=== PATIENT | male | born 1955 | race Caucasian/White ===

== ENCOUNTER → 2020-03-28 12:22 | Outpatient (CLI) | payer OTHER, SELFPAY ==
--- NOTE | 2020-03-28 12:30 | STE_ITS ---
Reason For Study: Aortic Insufficiency Stress Results Protocol: Homero Protocol Maximum Predicted HR: 155 bpm Target HR: 132 bpm % Maximum Predicted HR: 105 % DurationHeart Rate Stage (mm:ss) (bpm) BP Comment Baseline 72 160/96No Chest Pain Homero Protocol Stage I 3:00 120 180/92No Chest Pain Homero Protocol Stage II 3:00 157 194/90No Chest Pain Homero Protocol Stage III 3:00 162 204/94No Chest Pain Homero Protocol Stage IV 3:00 153 210/90No Chest Pain Recovery 95 152/90No Chest Pain Stress Duration: 12:00 mm:ss Maximum Stress HR: 162 bpm METS: 13 Baseline Echocardiogram Findings Stress Echo Wall motion Data Resting WM Intermediate WM Stress WM Interpretation Summary Exercise stress echo. Evaluate aortic insufficiency. Stress protocol: Resting EKG demonstrates normal sinus rhythm with a rate of 73 bpm normal intervals are noted resting blood pressure 160/96 mmHg. The patient exercised according to the regular Homero protocol for a total duration of 12 minutes. The patient completed stage IV of the Homero protocol. The maximum heart rate attained was 166 bpm which was 107% of max impacted heart rate the maximum workload was 13.4 metabolic equivalents. At rest there were no ST or T wave changes noted to suggest ischemia at peak exercise upsloping ST changes were noted with no meet the criteria for ischemia. The resting blood pressure was 160/96 with a peak blood pressure of 210/90 mmHg. No clinical angina was noted occasional premature ventricular complexes were noted the test was terminated due to attainment of target heart rate. Stress echocardiogram. Resting echocardiogram demonstrated estimated ejection fraction of 55% with trivial mitral regurgitation and mild aortic regurgitation. Patient exercised according to the regular Homero protocol and at peak exercise there was thickening of all hopper, contraction of left ventricular size, appropriate thickening of all hopper with no regional wall motion abnormalities noted. The peak ejection fraction was estimated to be 65%. Conclusion: Exercise stress echo with no EKG criteria for ischemia at a high workload. Excellent blood pressure response to exercise. No significant arrhythmias noted. No wall motion abnormalities noted suggestive of ischemia Ordering Physician: Chris Magaña Referring Physician: Nilton Bautista Performed By: Rena Lino, PRADIP, RVT
== END ==
PROVIDERS: PCP Family Medicine; Referring Provider Family Medicine; Visit Provider Family Medicine
DX: I35.1 Nonrheumatic aortic (valve) insufficiency (principal)
CPT/HCPCS: 93017; 93350

== ENCOUNTER → 2021-05-01 | Outpatient (CLI) | payer OTHER, SELFPAY ==
--- NOTE | 2021-05-01 08:00 | PROSBIL_PTH ---
PATIENT: RAÚL DUDLEY LOC: [facility] U#:[id number] AGE/SX: 66/M ROOM: RE05/01/[address]: Dr. Patel Steven MD : 1955 BED: DIS: 05/01/2021 SPEC #: [id number] RECD: 05/01/21 15:41 STATUS: ELDER REPhuong #: [id number] LOUIS: 05/01/21 08:[address]: Patel Steven DEPT: SURGICAL PATHOLOGY RECD BY: Quintin Marin ENTERED: 05/02/21 10:07 SP TYPE: PROST BX MARIBELL DR: Dr. Chris Magaña MD Tissues: A - PROSTATE RIGHT B - PROSTATE RIGHT C - PROSTATE RIGHT D - PROSTATE LEFT E - PROSTATE LEFT F - PROSTATE LEFT Procedures: PROSTATE BX HEADER OPERATION: Prostate biopsy PRE-OP DIAGNOSIS: R97.20 TISSUE SUBMITTED: A - Right apex, B - Right mid, C - Right base, D - Left apex, E - Left mid, F - Left base MICROSCOPIC DIAGNOSIS A. Right prostate, apex, core biopsy: Prostatic tissue, negative for malignancy. B. Right prostate, mid, core biopsy: Prostatic tissue, negative for malignancy. C. Right prostate, base, core biopsy: Prostatic tissue, negative for malignancy. Focal atrophy and mild chronic inflammation. D. Left prostate, apex, core biopsy: Prostatic tissue, negative for malignancy. Focal mild chronic inflammation. E. Left prostate, mid, core biopsy: Prostatic tissue, negative for malignancy. Focal mild chronic inflammation. F. Left prostate, base, core biopsy: Prostatic tissue, negative for malignancy. Focal mild chronic inflammation. SJ:rg 05/03/2021 MICROSCOPIC DESCRIPTION Slides are reviewed. GROSS DESCRIPTION A - Received is one container designated prostate, right apex. The specimen consists of two elongated fragments of light seth-white soft tissue measuring 0.5 and 1.5 cm in length and 0.1 cm in diameter. The specimen is totally submitted in one cassette. B - Received is one container designated prostate, right mid. The specimen consists of two elongated fragments of light seth-white soft tissue each measuring 0.7 cm in length and 0.1 cm in diameter. The specimen is totally submitted in one cassette. C - Received is one container designated prostate, right base. The specimen consists of two elongated fragments of light seth-white soft tissue each measuring 1.2 cm in length and 0.1 cm in diameter. The specimen is totally submitted in one cassette. D - Received is one container designated prostate, left apex. The specimen consists of two elongated fragments of light seth-white soft tissue each measuring 1 cm in length and 0.1 cm in diameter. The specimen is totally submitted in one cassette. E - Received is one container designated prostate, left mid. The specimen consists of two elongated fragments of light seth-white soft tissue measuring 0.5 and 1.2 cm in length and 0.1 cm in diameter. The specimen is totally submitted in one cassette. F - Received is one container designated prostate, left base. The specimen consists of two elongated fragments of light seth-white soft tissue measuring 0.7 and 1.5 cm in length and 0.1 cm in diameter. The specimen is totally submitted in one cassette. / SJ:rg 05/02/21 TC:3 CPT: 48961 x6
== END | disposition home or self-care (01) ==
LOC: LABSPEC 15:49
PROVIDERS: PCP Family Medicine; Referring Provider Urology; Visit Provider Urology
DX: R97.20 Elevated prostate specific antigen [PSA] (principal)
CPT/HCPCS: 88305; G0416

== ENCOUNTER 2022-06-15 16:15 | Outpatient (CLI) | payer OTHER, SELFPAY ==
--- NOTE | 2022-06-15 16:18 | MRI_ITS ---
MR Prostate WO/W Contrast 06/15/2022 4:43 PM COMPARISON: None CLINICAL HISTORY: 67-year-old male with rising PSA level. TECHNIQUE: Standard breast MR protocol was used before and after administration of 14 cc of IV Clariscan. FINDINGS: Prostate volume: 63 cc PSA density: PSA level not provided. Length of membranous urethra: 19 mm Post-biopsy hemorrhage: Yes Multiparametric MR evaluation: Heterogeneous appearance of the central gland is consistent with benign prostatic hyperplasia. Lesion 1: LOCATION - in the right posterior transitional gland at mid gland (image 14, series 8) there is a 1.5 x 1.4 x 1.1 cm ill-defined area of T2 hypointensity. This area is mildly bright on DWI and mildly dark on ADC map. T2 - 3 DWI - 3 DCE - inconclusive. Overall PI-RADS v2 score = 3 Lesion 2: There is diffuse bandlike T2 hypointensity involving the bilateral posterior medial peripheral zone mid gland to base with extension of hypointensity into the bilateral seminal vesicles. This area is mildly bright on DWI and mildly dark on ADC map. Capsular margin and neurovascular bundle: Not involved by lesion 1. Seminal vesicles: Not involved by lesion 1. See lesion 2 findings above. Lymph nodes: No lymphadenopathy in the field of view. Bones: No suspicious lesions in the field of view. MRI/Pelvis W/WO Contrast IMPRESSION: - 1.5 cm PI-RADS 3 lesion in the right posterior TZ at mid gland. - No evidence of macroscopic extracapsular extension. - No lymphadenopathy. - No suspicious bone lesions. Large bandlike T2 hypointense area involving the bilateral posteromedial PZ from mid gland to base with extension into the bilateral seminal vesicles. This could represent malignancy, however, it is more likely that this is prostatitis with seminal vesiculitis. Consider re-checking PSA level after a course of antibiotics. Benign prostatic hyperplasia. There is mild inflammation of a short segment of sigmoid colon concerning for acute sigmoid diverticulitis. Electronically Signed: Ravi Fernández MD at 1:11 EST ,
[2022-06-15 17:00] LABS: CREATININE FINGERSTICK < 0.9 mg/dL (0.70-1.30); EGFR FINGERSTICK > 60.0000 mL/min (>60)
== END 2022-06-15 23:59 | disposition home or self-care (01) ==
PROVIDERS: PCP Family Medicine; Visit Provider Urology
DX: R97.20 Elevated prostate specific antigen [PSA] (principal)
CPT/HCPCS: 72197; A9575

== ENCOUNTER → 2022-07-06 09:24 | Outpatient (REF) | payer SELFPAY | LOC: CVS 09:24 | PROVIDERS: PCP Family Medicine | DX: I10 Essential (primary) hypertension (principal) ==

== ENCOUNTER → 2022-07-06 | Outpatient (CLI) | payer OTHER, SELFPAY ==
--- NOTE | 2022-07-06 09:29 | ECHOD_ITS ---
Reason For Study: HTN Procedure This was a 2D Doppler, Color Flow transthoracic echocardiogram. Exam performed in department. Left Ventricle Normal LV size. Left ventricular systolic function is normal. The estimated ejection fraction is 60 %. No regional wall motion abnormalities noted. Right Ventricle Normal RV size. Normal systolic function. Atria Normal left atrium. Normal right atrium. Mitral Valve Normal mitral valve. Tricuspid Valve Normal tricuspid valve. Mild tricuspid valve insufficiency. Aortic Valve Trisinus/trileaflet aortic valve. Trivial aortic valve insufficiency. Pulmonic Valve Normal pulmonic valve. Great Vessels Normal aortic root. The pulmonary artery is normal size. Normal inferior vena cava. Pericardium/Pleural No pericardial effusion. MMode/2D Measurements & Calculations LVIDd: 4.7 cm IVSd: 1.0 cm Ao root diam: 3.6 cm LVIDs: 3.4 cm LVPWd: 1.1 cm RVDd: 3.5 cm FS: 28.0 % LAV(MOD-bp): 36.5 ml LVAd ap4: 27.8 cm2 SV(MOD-sp4): 51.7 ml LAV(MOD-bp) Indexed: 20.2 ml/m2 LVLd ap4: 7.9 cm LAV(MOD-sp2): 46.1 ml EDV(MOD-sp4): 81.5 ml LAV(MOD-sp4): 24.2 ml EDV(sp4-el): 83.0 ml LVAs ap4: 15.3 cm2 LVLs ap4: 7.0 cm ESV(MOD-sp4): 29.7 ml ESV(sp4-el): 28.2 ml EF(MOD-sp4): 63.5 % EF(sp4-el): 66.0 % SV(sp4-el): 54.7 ml LA A4 area: 11.6 cm2 LA dimension(2D): 2.7 cm RA A4 area: 14.2 cm2 Time Measurements MV dec time: 0.22 sec Doppler Measurements & Calculations MV E max anoop: 89.2 cm/sec Lat Peak E' Anoop: 10.8 cm/sec Med Peak E' Anoop: 7.4 cm/sec MV A max anoop: 87.0 cm/sec E/E' lat: 8.2 E/E' med: 12.0 MV E/A: 1.0 MV V2 max: 85.4 cm/sec Ao V2 max: 143.2 cm/sec MV max P.9 mmHg MV dec slope: 410.6 cm/sec2 Ao max P.2 mmHg MV V2 mean: 50.9 cm/sec Ao V2 mean: 95.5 cm/sec MV mean P.2 mmHg Ao mean P.3 mmHg MV V2 VTI: 25.3 cm Ao V2 VTI: 28.2 cm AV (velocity ratio): 0.90 LV V1 max: 133.2 cm/sec PA V2 max: 85.1 cm/sec LV V1 max P.1 mmHg PA V2 mean: 61.3 cm/sec LV V1 mean P.3 mmHg LV V1 mean: 82.0 cm/sec LV V1 VTI: 25.4 cm ECHO/Echo Complete Interpretation Summary Normal LV size. Left ventricular systolic function is normal. The estimated ejection fraction is 60 %. Mild tricuspid valve insufficiency. Trivial aortic valve insufficiency. Ordering Physician: Niltno Bautista Performed By: Rebecca Stroud RCS
== END | disposition home or self-care (01) ==
LOC: CVS 07-11 09:20
PROVIDERS: PCP Family Medicine; Visit Provider Internal Medicine Cardiovascular Disease
DX: I10 Essential (primary) hypertension (principal); I07.1 Rheumatic tricuspid insufficiency; I35.1 Nonrheumatic aortic (valve) insufficiency
CPT/HCPCS: 93306

== ENCOUNTER → 2022-08-31 | Outpatient (CLI) | payer SELFPAY ==
--- NOTE | 2022-08-31 13:25 | CT_ITS ---
INDICATION: CAD Overread examination. EXAMINATION: CT CHEST WITHOUT CONTRAST - CT Chest W/O Contrast Injection TECHNIQUE: Helically acquired images were obtained of the chest. A radiation dose optimization technique was used for this scan. IV Contrast dosage and agent: None. COMPARISON: None. FINDINGS: LUNGS, PLEURA AND LARGE AIRWAYS: No masses, consolidation, or edema. No pleural effusion or thickening. No pneumothorax. THYROID: No thyroid lesions. HEART AND PERICARDIUM: Heart size is normal. No pericardial effusion. CORONARY ARTERIES: Coronary artery calcification is seen. VESSELS: Thoracic aorta is not dilated. MEDIASTINUM AND ALLISON: Small benign appearing mediastinal lymph nodes. Esophagus is unremarkable. No hiatal hernia. UPPER ABDOMEN: No acute pathology. BONES: No suspicious lytic or blastic abnormality. CT/Limited Chest CT Cardiac Only IMPRESSION: Coronary artery calcification. Electronically Signed: Geoffrey Colon MD at 15:01 EST ,
[2022-08-31 13:26] VITALS: BP 138/84; PULSE 75; RESP 18; TEMP 36.4; O2SAT 98; BMI 22.8
[2022-08-31 13:40] VITALS: BP 129/91; PULSE 72
[2022-08-31] MEDS: Metoprolol Tartrate 5 MG/5 ML Vial IV (13:40)
[2022-08-31] MEDS: 0.9% Saline Lock 10 ML Syringe IV (13:54)
[2022-08-31 14:02] VITALS: BP 139/94; PULSE 63; RESP 18; O2SAT 99
--- NOTE | 2022-08-31 16:33 | CA.SCORE ---
Calcium Scoring Date of Study:: 08/31/22 Coronary Calcium Scoring: High-resolution Computed Tomographic imaging of the chest was performed on [08/31/2022], with particular attention paid to the coronary arteries. Images from the examination were analyzed for the presence and extent of coronary artery calcification , using coronary calcium quantification software. The patient tolerated the procedure well and there were no complications. The results of the coronary calcification analysis are provided below. Findings Coronary Artery Left Main (LM): 0 Left Anterior Descending (LAD): 12 Left Circumflex (LCX): 0 Right Coronary Artery (RCA): 8.45 Total Agatston Score: 20.45 Percentile Ranking: Less than 10% Calcium Scoring Interpretation: Different methods to categorize the overall amount of coronary plaque. Overall amount CAC SIS Visual of coronary plaque P1 Mild -100 <2 1-2 vessels with mild amount of plaque P2 Moderate 101-300 3-4 1-2 vessels with moderate amount, 3 vessels with mild amount of plaque P3 Severe 301-999 5-7 3 vessels with moderate amount, 1 vessel with severe amount of plaque P4 Extensive >1000 >8 2-3 vessels with severe amount of plaque Calcium Score: Mild: 1-2 vessels w/mild amount of plaque Conclusion: Minimal atherosclerotic plaquing only noted.
== END | disposition home or self-care (01) ==
PROVIDERS: PCP Preventive Medicine Occupational Medicine; Referring Provider Internal Medicine Cardiovascular Disease; Visit Provider Internal Medicine Cardiovascular Disease
DX: I10 Essential (primary) hypertension (principal); I25.10 Atherosclerotic heart disease of native coronary artery without angina pectoris
CPT/HCPCS: 75571; 76380; 96374

== ENCOUNTER → 2023-07-04 | Outpatient (CLI) | payer OTHER, SELFPAY ==
--- NOTE | 2023-07-04 11:15 | MRI_ITS ---
EXAMINATION: MR Pelvis Male WO/W Contrast COMPARISON: None CLINICAL HISTORY: 68-year-old man with elevated PSA Most recent PSA = 12 ng/ml TECHNIQUE: Standard prostate MR protocol was used before and after administration of 13 cc of IV Clariscan. FINDINGS: Prostate volume: 85 cc PSA density: 0.14 ng/ml2 Length of membranous urethra: 22 mm Post-biopsy hemorrhage: None Multiparametric MR evaluation: Heterogeneous appearance of the central gland is consistent with benign prostatic hyperplasia. Heterogeneous T2 hypointensity of the peripheral gland as well as the seminal vesicles could represent prostatitis and seminal vesiculitis. Lesion 1: LOCATION - 1.3 x 1.2 x 0.5 cm mildly T2 hypointense ill-defined lesion in the right anterior transitional zone between base and mid gland and demonstrates mild restricted diffusion. T2 - 3 DWI - 3 DCE - inconclusive Overall PI-RADS v2 score = 3 Lesion 2: LOCATION - 1.5 x 1.1 x 1.1 cm moderately T2 hypointense area in the right anterior and posterior transitional zone near base. It is moderately bright on DWI and moderately dark on ADC map. T2 - 4 DWI - 4 DCE - inconclusive Overall PI-RADS v2 score = 4 Capsular margin and neurovascular bundle: Not involved Seminal vesicles: See above. Lymph nodes: No lymphadenopathy in the field of view. Bones: No suspicious lesions in the field of view. MRI/Pelvis W/WO Contrast IMPRESSION: 1.5 cm PI-RADS 4 lesion in the right anterior/posterior TZ near base. - No evidence of macroscopic extracapsular extension. - No evidence of seminal vesicle invasion. - No lymphadenopathy. - No suspicious bone lesions. 1.3 cm PI-RADS 3 lesion in the right anterior TZ between base and mid gland. - No evidence of macroscopic extracapsular extension. - No evidence of seminal vesicle invasion. Benign prostatic hyperplasia. 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 Electronically Signed: Ravi Fernández MD at 18:38 EST ,
[2023-07-04 11:43] LABS: CREATININE FINGERSTICK < 1.0 mg/dL (0.70-1.30); EGFR FINGERSTICK > 60.0000 mL/min (>60)
== END | disposition home or self-care (01) ==
PROVIDERS: Referring Provider Urology; Visit Provider Urology
DX: R97.20 Elevated prostate specific antigen [PSA] (principal); Z80.42 Family history of malignant neoplasm of prostate
CPT/HCPCS: 72197; A9575

== ENCOUNTER → 2023-09-09 | Outpatient (CLI) | payer SELFPAY ==
--- NOTE | 2023-09-09 08:00 | PROSBIL_PTH ---
PATHOLOGY RESULTS PATIENT: RAÚL DUDLEY LOC: [facility] U#:[id number] AGE/SX: 68/M ROOM: RE09/09/[address]: Dr. Patel Steven MD : 1955 BED: DIS: 09/09/2023 SPEC #: [id number] RECD: 09/10/23 08:21 STATUS: ELDER JUICE #: [id number] L[place]IS: 09/09/23 08:[address]: Patel Steven DEPT: SURGICAL PATHOLOGY RECD BY: Liliya Welch ENTERED: 09/10/23 08:22 SP TYPE: PROST BX OTHR DR: No Primary Care Phys Tissues: PROSTATE RIGHT PROSTATE RIGHT PROSTATE RIGHT PROSTATE LEFT PROSTATE LEFT PROSTATE LEFT Procedures: PROSTATE BX HEADER OPERATION: Bilateral prostate biopsy PRE-OP DIAGNOSIS: Elevated prostate specific antigen TISSUE SUBMITTED: A - Right apex, B - Right mid, C - Right base, D - Left apex, E - Left mid, F - Left base MICROSCOPIC DIAGNOSIS A. Right prostate, apex, core biopsy: Prostatic tissue, negative for malignancy. Focal mild chronic inflammation and minimal acute inflammation. B. Right prostate, mid, core biopsy: Prostatic tissue, negative for malignancy. C. Right prostate, base, core biopsy: Prostatic tissue, negative for malignancy. D. Left prostate, apex, core biopsy: Prostatic tissue, negative for malignancy. Focal mild chronic inflammation and minimal acute inflammation. E. Left prostate, mid, core biopsy: Prostatic tissue, negative for malignancy. Focal mild chronic inflammation. F. Left prostate, base, core biopsy: Prostatic tissue, negative for malignancy. Focal mild chronic inflammation. SJ:rozina 09/11/2023 MICROSCOPIC DESCRIPTION Slides are reviewed. GROSS DESCRIPTION A - Received is one container designated prostate, right apex. The specimen consists of three elongated fragments of light seth-white soft tissue measuring 0.5 to 1.5 cm in length and 0.1 cm in diameter. The specimen is totally submitted in one cassette. B - Received is one container designated prostate, right mid. The specimen consists of three elongated fragments of light seth-white soft tissue measuring 1.0 to 1.4 cm in length and 0.1 cm in diameter. The specimen is totally submitted in one cassette. C - Received is one container designated prostate, right base. The specimen consists of two elongated fragments of light seth-white soft tissue each measuring 1.9 cm in length and 0.1 cm in diameter. The specimen is totally submitted in one cassette. D - Received is one container designated prostate, left apex. The specimen consists of two elongated fragments of light seth-white soft tissue each measuring 1.0 cm in length and 0.1 cm in diameter. The specimen is totally submitted in one cassette. E - Received is one container designated prostate, left mid. The specimen consists of two elongated fragments of light seth-white soft tissue measuring 1.8 and 2.1 cm in length and 0.1 cm in diameter. The specimen is totally submitted in one cassette. F - Received is one container designated prostate, left base. The specimen consists of two elongated fragments of light seth-white soft tissue each measuring 1.1 cm in length and 0.1 cm in diameter. The specimen is totally submitted in one cassette. / SJ:rg 09/10/2023 TC:3 CPT: 58083 x6
== END | disposition home or self-care (01) ==
LOC: LABSPEC 16:25
PROVIDERS: Referring Provider Urology; Visit Provider Urology
DX: R97.20 Elevated prostate specific antigen [PSA] (principal)
CPT/HCPCS: 88305; G0416

== ENCOUNTER → 2024-04-02 | Outpatient (CLI) | payer BC, SELFPAY ==
[2024-04-02 14:59] LABS: AST(SGOT) 20 U/L (15-37); Alanine Aminotransfer ALT/SGPT 23 U/L (16-61); Albumin, Serum 3.8 g/dL (3.2-5.0); Alkaline Phosphatase 92 U/L (45-117); Bilirubin, Direct 0.15 mg/dL (0.00-0.30); Cholesterol 168 mg/dL (200); Globulin 3.5 g/dL (2.2-4.2); High Density Lipoprotein 69 mg/dL; Protein, Total 7.3 g/dL (6.4-8.2); Triglycerides 52 mg/dL; Very Low Density Lipoprotein 10 mg/dL (5-40)
== END | disposition home or self-care (01) ==
LOC: LAB 14:02
PROVIDERS: Referring Provider Internal Medicine Cardiovascular Disease; Visit Provider Internal Medicine Cardiovascular Disease
DX: I10 Essential (primary) hypertension (principal)
CPT/HCPCS: 36415; 80061; 80076

== ENCOUNTER → 2025-01-02 | Outpatient (CLI) | payer BC, SELFPAY ==
--- OUTSIDE RECORDS SUMMARY | 2025-01-02 09:13 | XMS RPT_ITS | CCD ---
Author Organization [facility] Care Team Providers Care Freezer Person Name Role Phone Dr. Apollo Gross Primary Care Provider Dr. Apollo Gross Referring Provider [phone] Dr. Nilton Bautista Attending Provider [phone] Dr. Srikanth Sr Attending Provider [phone] Care Physician, No Primary Primary Care Provider Unavailable Care Physician, No Primary Referring Provider Un available Dr. Nilton Bautista Referring Provider [phone] Dr. Nilton Bautista Other Provider Dr. Jonathan Farmer Primary Care Provider Care Physician, No Primary Primary Care Unava ilable Patel Steven Referring Unavailable Patel Steven Attending Unavailable Care Physician, No Primary Primary Care Unava ilable Nilton Bautista Referring Unavailable Nilton Bautista Attending Unavailable LucasPatel lizarraga Referring Unavailable LucasPatel lizarraga Attending Unavailable Care Physician, No Primary Primary Care Unava ilable Care Physician, No Primary Primary Care Unava ilable Nilton Bautista Attending Unavailable Care Physician, No Primary Referring Unava ilable LUCAS, J CRYSTAL Admitting Unavailable LUCAS, J CRYSTAL Primary Care Unavailable LUCAS, J CRYSTAL Attending Unavailable APOLLO GROSS MD Consulting Unavailable PROVIDER, UNKNOWN Consulting Unavailable LUCAS, J CRYSTAL Admitting Unavailable LUCAS, J CRYSTAL Primary Care Unavailable LUCAS, J CRYSTAL Attending Unavailable APOLLO GROSS MD Consulting Unavailable PROVIDER, UNKNOWN Consulting Unavailable Allergies Allergy Classification Reported Allergen(s) Allergy Type Date of Onset Reaction(s) Facility (5 sources) Amoxicillin Drug Allergy 06-08-2022 Upset Stomach [facility] (1 source) Amoxicillin Drug Allergy 04-02-2024 [facility] Repository Medications Current Medications Medication Drug Class(es) Dates Sig (Normalized) Sig (Original) amLODIPine 10 mg oral tablet (6 sources) Dihydropyridine Calcium Channel Otilio Start: 06-20-2022 End: 01-17-2023 take 10 mg by mouth once daily Amlodipine Active 10 MG PO DAILY 60 January 17, 2023 3:19pm loratadine 10 mg oral tablet (2 sources) Start: 06-08-2022 take 10 mg by mouth once daily Loratadine Active 10 MG PO DAILY June 08, 2022 12:00am ramipril 10 mg oral capsule (7 sources) Angiotensin Converting Enzyme Inhibitor Start: 06-08-2022 End: 01-17-2023 take 10 mg by mouth once daily Ramipril Active 10 MG PO DAILY 60 January 17, 2023 3:18pm Completed/Discontinued Medications Medication Drug Class(es) Dates Sig (Normalized) Sig (Original) aspirin 81 mg delayed release oral tablet (9 sources) Platelet Aggregation Inhibitor, Nonsteroidal Anti-inflammatory Drug Start: 06-08-2022 End: 02-12-2023 Aspirin Discontinued 81 MG PO .Isaac January 17, 2023 3:20pm February 12, 2023 12:18pm Multivitamin preparation (5 sources) Start: 06-08-2022 End: 08-10-2022 take 1 tablet by mouth once daily Multivitamin Discontinued 1 TABLET PO DAILY June 08, 2022 12:00am August 10, 2022 11:38am Start: 06-08-2022 take 1 tablet by alfie th once daily Multivitamin Active 1 TABLET PO DAILY June 08, 2022 12:00am propranolol hydrochloride 20 mg oral tablet (5 sources) beta-Adrenergic Otilio Start: 06-08-2022 End: 06-20-2022 Propranolol Discontinued 20 MG PO THREE TIMES A DAY June 08, 2022 12:00am June 20, 2022 12:03pm Take if BP>160 systolic or 100 diastolic Problems Active Problems Problem Classification Problem Date Documented Da te Episodic/Chronic Essential hypertension (8 sources) Essential hypertension; Translations: [Essential (primary) hypertension] Chronic Other lower respiratory disease (5 sources) Snoring; Translations: [Snoring] 06-19-2022 Episodic Past or Other Problems Problem Classification Problem Date Documented Da te Episodic/Chronic Other screening for suspected conditions (not mental disorders or infectious disease) (6 sources) Raised prostate specific antigen; Translations: [Elevated prostate specific antigen [PSA]] Onset: 09-13-2023 06-19-2022 Episodic Results Test Name Value Interpretation Reference Range Facility Cardiology Visit Reporton Cardiology Visit Report [facility] [address] [place] [address] OFFICE VISIT Date of Service: 04/02/24 MR#: [id number] Acct: [id number] Name: RAÚL DUDLEY Rep #: [id number] : 1955 Provider: Dr. Nilton Bautista MD Age/Sex: 69/M Location: [facility] Status: Signed HPI HPI History of Present Illness Details: Pleasant 69-year-old man with a previous history hypertension who is here for a follow-up visit. He had previously been seen for hypertension had his medications changed around and is doing so much better. He denies any chest pain or shortness of breath or paroxysmal nocturnal dyspnea or pedal edema he has continued with his exercise regimen. As part of his work-up he underwent a stress echocardiogram in February 2020 demonstrating normal stress echocardiogram with no evidence of ischemia at a high workload of 13.4 metabolic equivalents. A regular echocardiogram demonstrated an ejection fraction of 60% in June 2022 a calcium score in August 2022 demonstrated an Agatston score of 20 with a percentile ranking of less than 10% and a blood flow screening demonstrated normal carotid artery screening, normal aortic ultrasound and normal ankle-brachial index. He has not had a recent lipid profile done but his last cholesterol demonstrated total cholesterol 197 HDL of 72 LDL 117 his physical exam is unremarkable. 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: No Accompanied by: Self Is patient in pain?: No Allergies amoxicillin Adverse Reaction (Intermediate, Verified 04/02/24 13:09) Upset Stomach Medications ???Medication ???Instructions ???Recorded ???Confirmed ???Type aspirin 81 mg tablet,delayed 81 mg PO MOWEFR 02/12/23 04/02/24 History release amlodipine 10 mg tablet 10 mg PO DAILY pt needs 60 days 03/04/24 04/02/24 Rx for [employer] insurance #60 tabs ramipril 10 mg capsule 10 mg PO DAILY Pt needs 60 days 03/04/24 04/02/24 Rx for [employer] insurance #60 caps hydrochlorothiazide 25 mg tablet 25 mg PO QAM #90 tabs 04/02/24 04/02/24 Rx Have you fallen in the past year?: No PFSH Medical History Snoring Elevated PSA Essential (primary) hypertension Surgical History Hx of colonoscopy ( 09/12/15) Hx of appendectomy ( 1960) History of arthroscopy of knee ( 1997) Family History Father Apraxia Dementia Malignant tumor of prostate Mother Arthritis Sister Heart disease Irregular heart rhythm Pacemaker Grandfather CAD (coronary artery disease) Myocardial infarction Grandfather CAD (coronary artery disease) Myocardial infarction Uncle CAD (coronary artery disease) Myocardial infarction Social History Smoking Status: Never smoker alcohol intake: never substance use type: does not use caffeine: Yes Type: coffee Number of servings: 1 ROS Const Const: Negative for fatigue, weakness, headache(s), daytime sleepiness or difficulty sleeping ENT ENT: Negative for headache(s), dizziness or Nosebleed/epistaxis Cardio Chest Pain: No Palpitations: No Edema: Bilateral (R>L ankles more often now than last year) Resp Respiratory: Negative for SOB with activity, SOB at rest, SOB orthopnea SOB lying down or Cough GI GI: Negative nausea, vomiting or heartburn Neuro Neuro: Negative for dizziness, lightheadedness, near syncope, headache(s) or weakness Endo Endo: Negative for fatigue Cardiology Exam Const Appearance: cooperative, healthy appearing, no acute distress, well developed and well groomed Nutritional Appearance: average body habitus and well nourished Orientation: alert, awake and oriented x3 Head Head: normal to inspection, normocephalic and atraumatic Ears: hearing grossly normal bilaterally and external ears normal Nose: external nose normal, nares normal, nasal mucous membranes and turbinates normal, septum normal and no nasal discharge Face and Sinus: face symmetric Mouth: oral mucosae normal, tongue normal, oropharynx normal and moist mucous membranes Teeth and gingiva: dentition normal Throat: posterior oropharynx normal, tonsils normal and uvula midline Eyes General: appearance normal, both eyes and all related structures Eyelids: eyelids normal Conjunctivae: conjunctivae normal Pupils: PERRL, normal by confrontation and accommodation normal EOM: EOM intact bilaterally Neck Neck: normal visual inspec (more content not included)... Normal [facility] Lipid Profileon 04-02-2024 Cholesterol [Mass/Vol] 168 mg/dL Normal 200 [facility] Comment on above: Result Comment: <200 mg/dL Desirable 200-240 mg/dL Borderline >240 mg/dL High Risk Performed By: #### L 500.3400, L500.4100 #### [facility] [address] [place], [address] Cholesterol in HDL [Mass/Vol] 69 mg/dL Normal [facility] Comment on above: Result Comment: The drugs N-Acetylcysteine and Metamizole may falsely depress this assay. Reference Range HDL <40 mg/dL Low HDL Cholesterol HDL >or= 60 mg/dL High HDL Cholesterol Performed By: #### L 500.3400, L500.4100 #### [facility] [address] [place], [address] Cholesterol in LDL [Mass/Vol] 89 mg/dL Normal 0-130 [facility] Comment on above: Performed By: #### L 500.3400, L500.4100 #### [facility] [address] [place], [address] Cholesterol in VLDL [Mass/Vol] 10 mg/dL Normal 5-40 [facility] Comment on above: Performed By: #### L 500.3400, L500.4100 #### [facility] [address] [place], [address] Triglyceride [Mass/Vol] 52 mg/dL Normal [facility] Comment on above: Result Comment: The drugs N-Acetylcysteine and Metamizole may falsely depress this assay. Serum Triglycerides Reference Interval Normal <150 mg/dL Borderline high 150 - 199 mg/dL High 200 - 499 mg/dL Very High > or = 500 mg/dL Performed By: #### L 500.3400, L500.4100 #### [facility] [address] [place], [address] Liver Profileon 04-02-2024 Albumin [Mass/Vol] 3.8 g/dL Normal 3.2-5.0 [facility] Comment on above: Performed By: #### L 500.3400, L500.4100 #### [facility] [address] [place], [address] ALK P 92 U/L Normal 45-117 [facility] Comment on above: Performed By: #### L 500.3400, L500.4100 #### [facility] [address] [place], [address] ALT [Catalytic activity/Vol] 23 U/L Normal 16-61 [facility] Comment on above: Performed By: #### L 500.3400, L500.4100 #### [facility] [address] [place], [address] AST [Catalytic activity/Vol] 20 U/L Normal 15-37 [facility] Comment on above: Performed By: #### L 500.3400, L500.4100 #### [facility] [address] [place], [address] Bilirubin [Mass/Vol] 0.50 mg/dL Normal 0.20-1.00 [facility] Comment on above: Result Comment: For patients on eltrombopag therapy, use of Dimension [place] TBIL is not recommended. Performed By: #### L 500.3400, L500.4100 #### [facility] [address] [place], [address] Bilirubin.direct [Mass/Vol] 0.15 mg/dL Normal 0.00-0.30 [facility] Comment on above: Performed By: #### L 500.3400, L500.4100 #### [facility] [address] [place], [address] Globulin (S) [Mass/Vol] 3.5 g/dL Normal 2.2-4.2 [facility] Comment on above: Performed By: #### L 500.3400, L500.4100 #### [facility] [address] [place], [place], [address] T PROT 7.3 g/dL Normal 6.4-8.2 [facility] Comment on above: Performed By: #### L 500.3400, L500.4100 #### [facility] [address] [place], [place], [id number] PROSTATE BXon 09-09-2023 PROSTATE BX Patient Age/Sex Location Account Attending Physician RAÚL DUDLEY 68/M LABSPEC [id number] Dr. Patel Steven MD Specimen: [id number] Received: 09/10/23 Status: ELDER Juarez Num: [id number] Spec Type: PROST BX Subm Dr: Dr. Patel Steven MD HEADER OPERATION: Bilateral prostate biopsy PRE-OP DIAGNOSIS: Elevated prostate specific antigen TISSUE SUBMITTED: A - Right apex, B - Right mid, C - Right base, D - Left apex, E - Left mid, F - Left base MICROSCOPIC DIAGNOSIS A. Right prostate, apex, core biopsy: Prostatic tissue, negative for malignancy. Focal mild chronic inflammation and minimal acute inflammation. B. Right prostate, mid, core biopsy: Prostatic tissue, negative for malignancy. C. Right prostate, base, core biopsy: Prostatic tissue, negative for malignancy. D. Left prostate, apex, core biopsy: Prostatic tissue, negative for malignancy. Focal mild chronic inflammation and minimal acute inflammation. E. Left prostate, mid, core biopsy: Prostatic tissue, negative for malignancy. Focal mild chronic inflammation. F. Left prostate, base, core biopsy: Prostatic tissue, negative for malignancy. Focal mild chronic inflammation. SJ:rozina 09/11/2023 MICROSCOPIC DESCRIPTION Slides are reviewed. GROSS DESCRIPTION A - Received is one container designated prostate, right apex. The specimen consists of three elongated fragments of light seth-white soft tissue measuring 0.5 to 1.5 cm in length and 0.1 cm in diameter. The specimen is totally submitted in one cassette. B - Received is one container designated prostate, right mid. The specimen consists of three elongated fragments of light seth-white soft tissue measuring 1.0 to 1.4 cm in length and 0.1 cm in diameter. The specimen is totally submitted in one cassette. C - Received is one container designated prostate, right base. The specimen consists of two elongated fragments of light seth-white soft tissue each measuring 1.9 cm in length and 0.1 cm in diameter. The specimen is totally submitted in one cassette. Patient Age/Sex Location Account Attending Physician RAÚL DUDLEY 68/Tyree LABSPEC [id number] Dr. Patel Steven MD D - Received is one container designated prostate, left apex. The specimen consists of two elongated fragments of light seth-white soft tissue each measuring 1.0 cm in length and 0.1 cm in diameter. The specimen is totally submitted in one cassette. E - Received is one container designated prostate, left mid. The specimen consists of two elongated fragments of light seth-white soft tissue measuring 1.8 and 2.1 cm in length and 0.1 cm in diameter. The specimen is totally submitted in one cassette. F - Received is one container designated prostate, left base. The specimen consists of two elongated fragments of light seth-white soft tissue each measuring 1.1 cm in length and 0.1 cm in diameter. The specimen is totally submitted in one cassette. / SJ:rg 09/10/2023 TC:3 [facility]: [id number] x6 Patient Age/Sex Location Account Attending Physician RAÚL DUDLEY 68/M LABSPEC [id number] Dr. Patel Steven MD Signed (signature on file) Dr. Allan Walker MD 09/11/23 1112 Normal [facility] Comment on above: Performed By: #### P PROSB #### [facility] [address] [facility] [place], [address] Basophil percentageOrdered B y: Patel Steven on 07-04-2023 Basophil percentage < 1.0 mg/dL 0.70-1.30 [facility] CREATININE FINGERSTICKon CREATININE WB < 1.0 Normal 0.70-1.30 [facility] Comment on above: Performed By: #### L 9100.0200 #### [facility] [address] [facility] [place], [address] EGFR WB > 60.0000 Normal >60 [facility] Comment on above: Performed By: #### L 9100.0200 #### [facility] [address] [facility] [place], [address] No Panel InformationOrdered By: Patel Steven on 07-04-2023 Bedside Estimated GFR (eGFR) > 60.0000 mL/min >60 [facility] Pelvis W/WO Contraston 07-04 Pelvis W/WO Contrast [facility] [address] [place] [address] Pelvis W/WO Contrast MR#: [id number] Acct: [id number] Name: RAÚL DUDLEY Zach Rep #: [id number] : 1955 M 68 From: Ravi combs MD PCP: Care Physician,No Primary Status: REG CLI Study: Pelvis W/WO Contrast Date of Exam: 07/04/23 Exam# [id number] Ordering Dr: Patel Steven MD [id number] EXAMINATION: MR Pelvis Male WO/W Contrast COMPARISON: None CLINICAL HISTORY: 68-year-old man with elevated PSA Most recent PSA = 12 ng/ml TECHNIQUE: Standard prostate MR protocol was used before and after administration of 13 cc of IV Clariscan. FINDINGS: Prostate volume: 85 cc PSA density: 0.14 ng/ml2 Length of membranous urethra: 22 mm Post-biopsy hemorrhage: None Multiparametric MR evaluation: Heterogeneous appearance of the central gland is consistent with benign prostatic hyperplasia. Heterogeneous T2 hypointensity of the peripheral gland as well as the seminal vesicles could represent prostatitis and seminal vesiculitis. Lesion 1: LOCATION - 1.3 x 1.2 x 0.5 cm mildly T2 hypointense ill-defined lesion in the right anterior transitional zone between base and mid gland and demonstrates mild restricted diffusion. T2 - 3 DWI - 3 DCE - inconclusive Overall PI-RADS v2 score = 3 Lesion 2: LOCATION - 1.5 x 1.1 x 1.1 cm moderately T2 hypointense area in the right anterior and posterior transitional zone near base. It is moderately bright on DWI and moderately dark on ADC map. T2 - 4 DWI - 4 DCE - inconclusive Overall PI-RADS v2 score = 4 Capsular margin and neurovascular bundle: Not involved Seminal vesicles: See above. Lymph nodes: No lymphadenopathy in the field of view. Bones: No suspicious lesions in the field of view. MRI/Pelvis W/WO Contrast IMPRESSION: 1.5 cm PI-RADS 4 lesion in the right anterior/posterior TZ near base. - No evidence of macroscopic extracapsular extension. - No evidence of seminal vesicle invasion. - No lymphadenopathy. - No suspicious bone lesions. 1.3 cm PI-RADS 3 lesion in the right anterior TZ between base and mid gland. - No evidence of macroscopic extracapsular extension. - No evidence of seminal vesicle invasion. Benign prostatic hyperplasia. 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 Electronically Signed: Ravi Fernández MD at 18:38 EST , CC: Dr. Patel Steven MD; No Primary Care Physician Assistant Finance Director: Signed Normal [facility] Basophil percentageOrdered B y: Dr. Steven on 06-15-2022 Basophil percentage < 0.9 mg/dL 0.70-1.30 [facility] No Panel InformationOrdered By: Dr. Steven on 06-15-2022 Bedside Estimated GFR (eGFR) > 60.0000 mL/min >60 [facility] PSAon 02-22-2021 Prostate Specific Antigen 8.06 ng/mL High 0.00-4.00 [facility] Comment on above: Performed By: #### P #### [address] [address] Vital Signs Date Time Vital Sign Value Performing Clinician Faci lity 08-31-2022 14:02-0500 Diastolic blood pressure 94 mm[Hg] Dr. Apollo Gross Work Phone: [facility] 08-31-2022 14:02-0500 Heart rate 63 /min Dr. Apollo Gross Work Phone: [facility] 08-31-2022 14:02-0500 Respiratory rate 18 /min Dr. Apollo Gross Work Phone: [facility] 08-31-2022 14:02-0500 SaO2% (BldA) [Mass fraction] 99 % Dr. Apollo Gross Work Phone: [facility] 08-31-2022 14:02-0500 Systolic blood pressure 139 mm[Hg] Dr. Apollo Gross Work Phone: [facility] 08-31-2022 13:26-0500 Body height 172.[address] Apollo Gross Work Phone: [facility] 08-31-2022 13:26-0500 Body mass index (BMI) [Ratio] 22.8 kg/m2 Dr. Apollo Gross Work Phone: [facility] 08-31-2022 13:26-0500 Body temperature 97.5 [degF] Dr. Apollo Gross Work Phone: [facility] 08-31-2022 13:26-0500 Body weight 68.[address] Apollo Gross Work Phone: [facility] 08-10-2022 11:33-0500 Body mass index (BMI) [Ratio] 22.8 kg/m2 Dr. Apollo Gross Work Phone: [facility] 08-10-2022 11:33-0500 Body weight 68.[address] Apollo Gross Work Phone: [facility] 08-10-2022 11:33-0500 Diastolic blood pressure 75 mm[Hg] Dr. Apollo Gross Work Phone: [facility] 08-10-2022 11:33-0500 Heart rate 72 /min Dr. Apollo Gross Work Phone: [facility] 08-10-2022 11:33-0500 Respiratory rate 16 /min Dr. Apollo Gross Work Phone: [facility] 08-10-2022 11:33-0500 Systolic blood pressure 132 mm[Hg] Dr. Apollo Gross Work Phone: [facility] 06-20-2022 11:28-0500 Diastolic blood pressure 118 mm[Hg] Dr. Apollo Gross Work Phone: [facility] 06-20-2022 11:28-0500 Systolic blood pressure 227 mm[Hg] Dr. Apollo Gross Work Phone: [facility] 06-20-2022 11:18-0500 Body height 172.[address] Apollo Gross Work Phone: [facility] Work Phone: 06-20-2022 11:18-0500 Body mass index (BMI) [Ratio] 22.6 kg/m2 Dr. Apollo Gross Work Phone: [facility] 06-20-2022 11:18-0500 Body weight 67.[address] Apollo Gross Work Phone: [facility] 06-20-2022 11:18-0500 Heart rate 62 /min Dr. Apollo Gross Work Phone: [facility] 06-20-2022 11:18-0500 Respiratory rate 16 /min Dr. Apollo Gross Work Phone: [facility] 06-20-2022 11:18-0500 SaO2% (BldA) [Mass fraction] 99 % Dr. Apollo Gross Work Phone: [facility] Encounters Encounter Date Encounter Type Care Provider Facility Start: 09-05-2024 End: 09-05-2024 ambulatory [facility] Start: 04-02-2024 End: 04-02-2024 ambulatory No Primary Care Physician Facility:[facility] Start: 2024 End: 2024 ambulatory [facility] Start: 09-09-2023 End: 09-09-2023 ambulatory [facility] Work Phone: Start: 09-09-2023 End: 09-09-2023 Patient encounter procedure [facility]Labor[facility], Specimen Work Phone: Start: 09-09-2023 End: 09-09-2023 ambulatory No Primary Care Physician Facility:[facility] Start: 07-04-2023 End: 07-04-2023 ambulatory [facility] Work Phone: Start: 07-04-2023 End: 07-04-2023 Patient encounter procedure [facility] Work Phone: Start: 07-04-2023 End: 07-04-2023 ambulatory Gomez Lucas Facility:[facility] Start: 08-31-2022 Non-patient / Non-visit Dr. Nancy Gross Work Phone: [facility] Start: 08-31-2022 End: 08-31-[address] Apollo Gross Work Phone: [facility] Work Phone: Start: 08-31-2022 End: 08-31-[address] Apollo Gross Work Phone: [facility] Start: 08-10-2022 End: 08-10-2022 Patient encounter procedure Dr. Apollo Gross Work Phone: [facility] Start: 07-06-2022 Non-patient / Non-visit Dr. Nancy Gross Work Phone: [facility] Start: 07-06-2022 End: 07-06-[address] Apollo Gross Work Phone: [facility] Work Phone: Start: 07-06-2022 End: 07-06-[address] Apollo Gross Work Phone: [facility] Start: 07-06-[address] Apollo Gross Work Phone: [facility] Start: 06-20-2022 End: 06-20-[address] Apollo Gross Work Phone: [facility] Start: 06-15-2022 End: 06-15-2022 ambulatory [facility] Work Phone: Start: 06-15-2022 End: 06-15-2022 Patient encounter procedure [facility] Procedures Date Procedure Procedure Detail Performing Clinician Start: 09-05-2024 PSA screening LYNN STEVEN Comment on above: Performed By: #### [id number] #### [facility],[address] [place] [address] Start: 2024 PSA screening NA LUCAS Comment on above: Performed By: #### [id number] #### [place] [id number] Start: 07-04-2023 MRI of pelvis with contrast Start: 08-31-2022 CT angiography of co ronary arteries Dr. Apollo Gross Work Phone: Start: 06-15-2022 MRI of pelvis with contrast Plan of Treatment Date Care Activity Detail Author Start: 08-31-2022 Following clinical p athway protocol [facility] Work Phone: [facility] Payers Date Payer Category Payer Unknown [id number] 2023 Self-pay [id number] 2023 Unknown [id number] 2023 Unknown [id number] 1955 Unknown [id number] 2.16.8 [id number] 1955 Unknown [id number] 2.16.8 [id number] Unknown [id number] 2.16.8 [id number] Unknown [id number] 2.16.8 [id number] Unknown [id number] 2.16.8 [id number] Unknown [id number] 2.16.8 [id number] Social History Date Type Detail Facility Start: 06-08-2022 End: 02-12-2023 Tobacco smoking status NHIS Unknown if ever smoked [facility] Start: 1955 Sex Assigned At Male [facility] Mental Status Date Assessment Result Facility 08-31-2022 Cognitive function Level Of Cons ciousness Awake;Alert;Appropriate [facility] Work Phone: Evaluation note Note Date & Type Note Facility Evaluation note No assessment information availa ble [facility] Work Phone: Evaluation note Note Date & Type Note Facility Evaluation note Diagnosis Onset Date Essential (primary) hypertension acute [facility] Work Phone: Evaluation note Note Date & Type Note Facility Evaluation note Diagnosis Onset Date Essential (primary) hypertension acute Essential (primary) hypertension acute [facility] Work Phone: Summary Purpose Family History No Family History Records Found Relationship Condition Age at Onset Recorded Date/T fior father Apraxia Unknown Dementia Unknown Malignant neoplasm of prostate Unknown mother Arthritis Unknown sister Cardiac disease Unknown Irregular heart rhythm Unknown Presence of cardiac pacemaker Unknown Relationship Condition Age at Onset Recorded Date/T fior father Apraxia Unknown Dementia Unknown Malignant neoplasm of prostate Unknown mother Arthritis Unknown sister Cardiac disease Unknown Irregular heart rhythm Unknown Presence of cardiac pacemaker Unknown grandfather Coronary artery disease Unknown Myocardial infarction Unknown uncle Coronary artery disease Unknown Advance Directives No Advanced Directives Records FoundNo Advanced Directives Records FoundNo Advanced Directives Records Found Chief Complaint and Reason for Visit Chief Complaint ELEVATED PROSTATE AN TIGEN Chief Complaint ELEVATED PROSTATE AN TIGEN HTN management HYPERTENSION HYPERTENSION Reason for Visit Essential (primary) hypertension Chief Complaint ELEVATED PROSTATE AN TIGEN HTN management HYPERTENSION HYPERTENSION 6 wk FU CAD Coronary artery disease Reason for Visit Essential (primary) hypertension Essential (primary) hypertension Chief Complaint ELEVATED PSA Additional Source Comments (unrecognized sect ion and content) No Status Records FoundNo Status Records FoundNo Status Records Found INFORMATION SOURCE (unrecogn ized section and content) DATE CREATED AUTHOR 02/23/2021 [facility] ([place]) DATE CREATED AUTHOR AUTHOR'S ORGANIZ ATION 04/04/2024 [facility] DATE CREATED AUTHOR AUTHOR'S ORGANIZ ATION 09/07/2024 [facility] Goals (unrecognized section and content) Goals may be documented in a n alternate sectionGoals may be documented in an alternate sectionGoals may be documented in an alternate sectionGoals may be documented in an alternate sectionGoals may be documented in an alternate section Care Teams (unrecognized sec tion and content) Team Status: Active Member Role Status Dates Dr. Jonathan Farmer DO Primary Care Provider Active Team Status: Inactive Member Role Status Dates Dr. Apollo Gross MD Primary Care Provider, Referri ng Provider Active Dr. Nilton Bautista MD Attending Provider Active Team Status: Active Member Role Status Dates Dr. Apollo Gross MD Primary Care Provider Active Dr. Nilton Bautista MD Attending Provider Active Team Status: Active Member Role Status Dates Dr. Apollo Gross MD Primary Care Provider Active Dr. Srikanth Sr MD Attending Provider Active Team Status: Inactive Member Role Status Dates Dr. Nilton Bautista MD Attending Provider Active No Primary Care Physician Primary Care Provider, Refer ring Provider Active Team Status: Active Member Role Status Dates Dr. Nilton Bautista MD Attending Provider, Referring Provider, Other Provider Active Dr. Jonathan Farmer DO Primary Care Provider Active Team Status: Inactive Member Role Status Dates Dr. Apollo Gross MD Primary Care Provider Active Dr. Patel Steven MD Attending Provider Active Team Status: Inactive Member Role Status Dates Dr. Apollo Gross MD Primary Care Provider Active Dr. Nilton Bautista MD Attending Provider Active Team Status: Active Member Role Status Dates Dr. Apollo Gross MD Primary Care Provider Active Self Referred Attending Provider Active Team Status: Inactive Member Role Status Dates Dr. Nilton Bautista MD Attending Provider, Referring Pro vider Active Dr. Jonathan Farmer DO Primary Care Provider Active Team Status: Active Member Role Status Dates No Primary Care Physician Primary Care Provider Active Team Status: Inactive Member Role Status Dates Dr. Patel Steven MD Attending Provider, Referr ing Provider Active No Primary Care Physician Primary Care Provider Active Team Status: Inactive Member Role Status Dates No Primary Care Physician Primary Care Provider Active Dr. Patel Steven MD Attending Provider, Referr ing Provider Active FOR RECORDS PERTAINING TO PATIENTS WHO ARE OR HAVE BEEN ENROLLED IN A CHEMICAL DEPENDENCY/SUBSTANCEABUSE PROGRAM, SOME INFORMATION MAY BE OMITTED. This clinical summary was aggregated from multiple sources. Caution should be exercised in using it in the provision of clinical care. This summary normalizes information from multiple sources, and as a consequence, information in this document may materially change the coding, format and clinical context of patient data. In addition, data may be omitted in some cases. CLINICAL DECISIONS SHOULD BE BASED ON THE PRIMARY CLINICAL RECORDS. [employer] provides no warranty or guarantee of the accuracy or completeness of information in this document.
[2025-01-04 15:08] LABS: PSA, Free 1.99 ng/mL; PSA, Free % 20.7 % (.)
== END | disposition home or self-care (01) ==
LOC: LAB 09:08
PROVIDERS: Referring Provider Urology; Visit Provider Urology
DX: N40.1 Benign prostatic hyperplasia with lower urinary tract symptoms (principal)
CPT/HCPCS: 36415; 84153; 84154

== ENCOUNTER → 2025-05-04 | Outpatient (CLI) | payer BC, SELFPAY ==
[2025-05-04 12:06] LABS: AST(SGOT) 18 U/L (<=37); Alanine Aminotransfer ALT/SGPT 14 U/L (<=46); Albumin, Serum 4.6 g/dL (3.4-4.8); Alkaline Phosphatase 96 U/L (40-129); Bilirubin, Direct 0.17 mg/dL (0.00-0.30); Cholesterol 178 mg/dL (<=200); Globulin 3.2 g/dL (2.2-4.2); Low Density Lipoprotein Calc. 107 mg/dL; Triglycerides 51 mg/dL; Very Low Density Lipoprotein 10 mg/dL (5-40); cholesterol:hdl ratio screen 2.91
== END | disposition home or self-care (01) ==
LOC: LAB 10:22
PROVIDERS: Referring Provider Internal Medicine Cardiovascular Disease; Visit Provider Internal Medicine Cardiovascular Disease
DX: I10 Essential (primary) hypertension (principal)
CPT/HCPCS: 36415; 80061; 80076

== ENCOUNTER → 2025-06-07 | Outpatient (CLI) | payer BC, SELFPAY | END | disposition home or self-care (01) | LOC: CVS 12:56 | PROVIDERS: Referring Provider Internal Medicine Cardiovascular Disease; Visit Provider Internal Medicine Cardiovascular Disease | DX: I10 Essential (primary) hypertension (principal) | CPT/HCPCS: 93306 ==